=== PATIENT | female | born 1970 | race Caucasian/White ===

== ENCOUNTER → 2025-08-31 | Outpatient (REF) | payer MEDICARE, MEDICAID ==
[~2025-08-31] MED LIST: DULC10SU2 PR; MIRA3350 PO
== END ==
LOC: M LAB REF 14:34
PROVIDERS: ATTEND Physician Assistant
DX: Z79.899 Other long term (current) drug therapy (principal); N77.1 Vaginitis, vulvitis and vulvovaginitis in diseases classified elsewhere

== ENCOUNTER 2025-09-01 21:42 | Emergency (ER) | payer MEDICARE, MEDICAID ==
[~2025-09-01] VITALS: Ht 154.9 cm; Wt 120.2 kg
[2025-09-02 01:11] LABS: BASO # 0.1 10^3/uL (0.0-0.2); BASO % 0.5 % (0.0-1.0); EOS # 0.2 10^3/uL (0.0-0.5); EOS % 2.1 % (0.0-3.0); LYMPH # 3.6 10^3/uL (1.5-5.0); LYMPH % 36.7 % (24.0-44.0); MONO # 0.6 10^3/uL (0.0-0.8); MONO % 6.0 % (2.0-8.0); NEUTROPHILS # 5.3 10^3/uL (1.5-8.5); NEUTROPHILS % 54.4 % (36.0-66.0); PLATELET COUNT, AUTOMATED 304 10^3/uL (150-450)
[2025-09-02 01:39] LABS: ALT/SGPT 65 U/L (7.0-40); AST/SGOT 39 U/L (<34); CALCIUM LEVEL 9.5 MG/DL (8.5-10.1); CARBON DIOXIDE LEVEL 25 MMOL/L (20-31); CHLORIDE LEVEL 106 MMOL/L (98-107); CREATININE FOR GFR 0.72 MG/DL (0.55-1.30); GLOMERULAR FILTRATION RATE > 90.0 (>51); POTASSIUM SERUM 4.5 MMOL/L (3.5-5.1); SODIUM LEVEL 141 MMOL/L (136-145)
[2025-09-02] MEDS: ONDANSETRON 4MG/2ML VIAL IV ONE (03:51)
[2025-09-02] MEDS: NS (Normal Saline) 0.9% 1,000 ML IV ONE (03:52)
[2025-09-02] MEDS: KETOROLAC 30 MG/ML 1 ML VIAL IV ONE (04:30)
[2025-09-02 04:59] LABS: KETONE, URINE AUTO RFX NEGATIVE (NEGATIVE); NITRITE, URINE AUTO RFX NEGATIVE (NEGATIVE); RBC, URINE AUTO RFX 1 /HPF (0-3); SQUAM EPITHELIAL CELL UR AURFX 2 /HPF (0-6); WBC, URINE AUTO RFX 1 /HPF (0-3)
[2025-09-02 05:06] LABS: LEUKOCYTE ESTERASE UR AUTO RFX 1+ (NEGATIVE)
[2025-09-02 06:30] VITALS: BP 148/86; O2SAT 96
[2025-09-02] MEDS ORDERED: MIRA3350 PO (06:48)
[2025-09-02] MEDS ORDERED: DULC10SU2 PR (06:48)
[2025-09-02] MEDS: MAGNESIUM CITRATE 300 ML BTL PO ONE (07:03)
[2025-09-02 07:07] VITALS: TEMP 99.2
== END 2025-09-02 07:14 | disposition home or self-care (01) ==
LOC: M ED 21:42
DX: K59.00 Constipation, unspecified (principal); T88.7XXA Unspecified adverse effect of drug or medicament, initial encounter; E11.9 Type 2 diabetes mellitus without complications; F32.A Depression, unspecified; Z88.0 Allergy status to penicillin; Z88.1 Allergy status to other antibiotic agents; Z88.2 Allergy status to sulfonamides; Z79.899 Other long term (current) drug therapy
CPT/HCPCS: 36415; 74176; 80048; 80076; 81001; 82150; 83690; 85025; 96361; 96374; 96375; 99284; J1885; J2405

== ENCOUNTER 2025-09-08 14:43 | Emergency (ER) | payer MEDICARE, MEDICAID ==
[~2025-09-08] VITALS: Ht 154.9 cm; Wt 120.0 kg
[2025-09-08 14:56] VITALS: TEMP 97.5
[2025-09-08 16:15] VITALS: BP 153/91; O2SAT 98
[2025-09-08] MEDS: KETOROLAC 30 MG/ML 1 ML VIAL IV ONE (17:30)
[2025-09-08] MEDS: ONDANSETRON 4MG/2ML VIAL IV ONE (17:38)
[2025-09-08] MEDS ORDERED: MEDR4PAK PO (19:49)
[2025-09-08] MEDS ORDERED: CELE1CAP4 PO (19:49)
== END 2025-09-08 20:01 | disposition home or self-care (01) ==
LOC: M ED 14:43 → EDBD 14:43 → M ED 20:01
DX: M46.1 Sacroiliitis, not elsewhere classified (principal); E11.9 Type 2 diabetes mellitus without complications; E78.5 Hyperlipidemia, unspecified; K21.9 Gastro-esophageal reflux disease without esophagitis; I51.9 Heart disease, unspecified; Z88.0 Allergy status to penicillin; Z88.1 Allergy status to other antibiotic agents; Z88.8 Allergy status to other drugs, medicaments and biological substances; Z88.2 Allergy status to sulfonamides; Z79.899 Other long term (current) drug therapy
CPT/HCPCS: 96374; 96375; 99284; J1100; J1885; J2405

== ENCOUNTER 2025-09-28 21:30 | Emergency (ER) | payer MEDICARE, MEDICAID ==
[~2025-09-28] VITALS: Ht 157.5 cm; Wt 124.5 kg
[~2025-09-28 21:30] MED LIST changes: +CELE1CAP4 PO; +MEDR4PAK PO
[2025-09-28 23:07] LABS: BASO # 0.0 10^3/uL (0.0-0.2); BASO % 0.3 % (0.0-1.0); EOS # 0.2 10^3/uL (0.0-0.5); EOS % 1.8 % (0.0-3.0); LYMPH # 3.7 10^3/uL (1.5-5.0); LYMPH % 30.3 % (24.0-44.0); MONO # 0.7 10^3/uL (0.0-0.8); MONO % 5.7 % (2.0-8.0); NEUTROPHILS # 7.5 10^3/uL (1.5-8.5); NEUTROPHILS % 61.5 % (36.0-66.0); PLATELET COUNT, AUTOMATED 242 10^3/uL (150-450)
[2025-09-28] MEDS: IPRATROPIUM 0.5 MG/ALBUTEROL 2.5 MG INH SOL UD 3 ML NEB PRN (23:12)
[2025-09-29 00:03] LABS: ALT/SGPT 88 U/L (7.0-40); AST/SGOT 69 U/L (<34); CALCIUM LEVEL 9.1 MG/DL (8.5-10.1); CARBON DIOXIDE LEVEL 27 MMOL/L (20-31); CHLORIDE LEVEL 101 MMOL/L (98-107); CREATININE FOR GFR 0.55 MG/DL (0.55-1.30); GLOMERULAR FILTRATION RATE > 90.0 (>51); POTASSIUM SERUM 5.0 MMOL/L (3.5-5.1); SODIUM LEVEL 137 MMOL/L (136-145); THYROXINE (T4) 6.4 UG/DL (4.5-10.9)
[2025-09-29] MEDS ORDERED: COMBAER6 INH ×2 (00:20→00:44)
[2025-09-29] MEDS ORDERED: MEDR4PAK PO ×2 (00:20→00:44)
[2025-09-29] MEDS ORDERED: ZITHTAB PO ×2 (00:28→00:44)
[2025-09-29] MEDS ORDERED: CEFD300C PO (00:28)
[2025-09-29 00:36] VITALS: BP 123/66; TEMP 97.2; O2SAT 94
[2025-09-29] MEDS: CEFDINIR 300 MG CAP PO ONE (00:36)
[2025-09-29] MEDS: AZITHROMYCIN 250 MG TABLET PO ONE (00:36)
== END 2025-09-29 00:43 | disposition home or self-care (01) ==
LOC: M ED 21:30 → EDBD 21:30 → M ED 09-29 00:43
DX: J18.9 Pneumonia, unspecified organism (principal); J45.901 Unspecified asthma with (acute) exacerbation; I45.81 Long QT syndrome; I45.10 Unspecified right bundle-branch block; J44.9 Chronic obstructive pulmonary disease, unspecified; I25.2 Old myocardial infarction; K21.9 Gastro-esophageal reflux disease without esophagitis; F43.10 Post-traumatic stress disorder, unspecified; F31.9 Bipolar disorder, unspecified; F17.210 Nicotine dependence, cigarettes, uncomplicated; Z88.0 Allergy status to penicillin; Z88.1 Allergy status to other antibiotic agents; Z88.2 Allergy status to sulfonamides; Z88.8 Allergy status to other drugs, medicaments and biological substances; Z79.2 Long term (current) use of antibiotics; Z79.899 Other long term (current) drug therapy; Z79.51 Long term (current) use of inhaled steroids
CPT/HCPCS: 71045; 80048; 80076; 83605; 84145; 84436; 84443; 85025; 87040; 87486; 87581; 87633; 87798; 93005; 93041; 94640; 94760; 96374; 99285; J2919